=== PATIENT | female | born 2000 | race Hispanic/Latino ===

== ENCOUNTER 2024-10-03 19:00 | Emergency (ER) | payer OTHER ==
[~2024-10-03] VITALS: Ht 167.6 cm; Wt 124.7 kg
[2024-10-03 19:06] VITALS: PULSE 83; RESP 18; TEMP 98.7
[2024-10-03] MEDS ORDERED: KETOROLAC TROMETHAMINE 30 MG/ML VIAL IV STA (19:26)
[2024-10-03] MEDS ORDERED: DEXAMETHASONE SOD PHOS INJ 4 MG/ML SDV ONE (21:17)
[2024-10-03] MEDS: SODIUM CHLORIDE 0.9% 1000ML 1,000 ML IV ONE (21:43)
[2024-10-03] MEDS: METOCLOPRAMIDE HCL 10 MG/2ML VIAL IV ONE (21:43)
[2024-10-03] MEDS: DEXAMETHASONE PHOS 4MG/ML 5ML MULTIDOSE VIAL IV ONE (21:44)
[2024-10-03] MEDS: DEXAMETHASONE SOD PHOS INJ 4 MG/ML SDV IV ONE (21:49)
[2024-10-03] MEDS ORDERED: REGLAN10 MG PO (22:21)
[2024-10-03] MEDS: KETOROLAC TROMETHAMINE 30 MG/ML VIAL IV STA (22:22)
[2024-10-03 22:29] VITALS: BP 118/75; PULSE 80; RESP 18; TEMP 98.7; O2SAT 99
== END 2024-10-03 22:29 | disposition home or self-care (01) ==
LOC: FSED 19:17
DX: G43.909 Migraine, unspecified, not intractable, without status migrainosus (principal); R11.0 Nausea; E03.9 Hypothyroidism, unspecified; Z85.850 Personal history of malignant neoplasm of thyroid
CPT/HCPCS: 70450; 96374; 96375; 99283; J1100; J1885; J2765; J7030